=== PATIENT | male | born 1970 | race Caucasian/White ===

== ENCOUNTER 2022-07-09 09:16 | Emergency (ER) | payer OTHER, BC, SELFPAY ==
[2022-07-09 09:55] VITALS: BP 168/112; PULSE 76; RESP 16; TEMP 36.4; O2SAT 98; BMI 29.6
--- NOTE | 2022-07-09 12:26 | CRLHL7_ITS ---
For Patients: As a result of the Century Cures Act, medical imaging exams and procedure reports are released immediately into your electronic medical record. You may view this report before your referring provider. If you have questions, please contact your health care provider. Indication: Knee pain posteriorly Comparison: None available. Technique: Standing AP, lateral, and sunrise views of the left knee were obtained Findings: There is no displaced fracture or dislocation. Postoperative change status post ACL repair with bone anchors in the femur and tibia are appreciated. Additional fixation device in the distal femur is appreciated. No obvious hardware failure. The soft tissues are unremarkable. Impression: Degenerative and postoperative changes of the knee without acute osseous abnormality. Dictated by Harrison Ford MD @ 07/09/2022 2:07:39 PM (Electronically Signed)
--- NOTE | 2022-07-09 12:27 | ED.GENADULT ---
HPI - General Adult General Time Seen by Provider: 12:27 Date Seen: 07/09/22 Chief complaint: Extremity Pain/Injury, Lower Stated complaint: Fall, left knee injury Time Seen by Provider: 07/09/22 12:22 Source: patient Mode of arrival: wheelchair Limitations: physical limitation History of Present Illness HPI narrative: Patient presents with left knee injury after twisting it on a step this morning. She has had ACL repair on the left knee in the past, he heard a popping sensation, it has been swollen since. Unable to bear weight, and a good amount of discomfort. He does not notice any swelling about his ankle or proximal thigh, no hip pain he did not actually sustain any injury from the event other than the knee. Related Data Previous Rx's Medication Instructions Recorded hydrocodone 7.5 mg-acetaminophen 1 tab PO Q8H PRN pain #14 tabs 07/09/22 325 mg tablet ketorolac 10 mg tablet 10 mg PO TID PRN pain 5 days #10 07/09/22 tabs Allergies Allergy/AdvReac Type Severity Reaction Status Date / Time No Known Drug Allergies Allergy Verified 07/09/22 10:01 Review of Systems Status of ROS: Reports: 6 or more systems reviewed and unremarkable except as noted in History and below PFSH PFS Social History Non-prescribed substance use: denies use Exam Narrative: Exam Narrative: Objective: Vital signs show elevated blood pressure, patient is in moderate distress and discomfort in the knee, he finds it hard to find a comfortable position. Lytes keep the knee slightly flexed Left knee examination shows mild effusion, mild anterior drawer test that is about 1+, his right knee is 0. His left knee as the operative knee however. Distal CMS normal left lower extremity No marked medial lateral joint 9 tenderness Const: Vital Signs, click to edit/add: Vital Signs - 24 hr 07/09/22 09:55 Temperature 97.5 F L Pulse Rate [Right Pulse Oximeter] 76 Respiratory Rate 16 Blood Pressure [Ri ght Upper Arm] 168/112 H Pulse Oximetry 98 Oxygen Delivery Me thod Room Air Course Vital Signs Vital signs: Initial Vital Signs Temperature 97.5 F L 07/09/22 09:55 Temperature Source Temporal Artery Scan 07/09/22 09:55 Pulse Rate 76 07/09/22 09:55 Pulse Rhythm 07/09/22 09:55 Respiratory Rate 16 07/09/22 09:55 Blood Pressure 168/112 H 07/09/22 09:55 Blood Pressure Mean 130 07/09/22 09:55 Blood Pressure Position Sitting 07/09/22 09:55 Pulse Oximetry 98 07/09/22 09:55 Oxygen Delivery Method 07/09/22 09:55 Vital Signs Temperature 97.5 F L 07/09/22 09:55 Pulse Rate 76 07/09/22 09:55 Respiratory Rate 16 07/09/22 09:55 Blood Pressure 168/112 H 07/09/22 09:55 Pulse Oximetry 98 07/09/22 09:55 Oxygen Delivery Method 07/09/22 09:55 Temperature 97.5 F L 07/09/22 09:55 Pulse Rate 76 07/09/22 09:55 Respiratory Rate 16 07/09/22 09:55 Blood Pressure 168/112 H 07/09/22 09:55 Pulse Oximetry 98 07/09/22 09:55 Oxygen Delivery Method 07/09/22 09:55 Medical Decision Making MDM Narrative Medical decision making narrative: Patient sustained an injury to his left knee, his ACL repair knee. Will get an x-ray of his knee, will give him morphine 10 mg IM, will need a knee immobilizer, ice, crutches, nonweightbearing. Will need orthopedic follow-up in the next 2-3 days. Will give him some Blanchard for home, have him use Advil as well. Generally reports he is healthy. Disposition pending x-ray above Addendum: By my read the x-ray looks unremarkable, knee immobilizer, crutches, Toradol 10 mg orally, will discharge him with Blanchard and Toradol for home, ortho follow-up in 2-3 days, nonweightbearing, off work until next Saturday or until ortho follow-up. Discharge Plan Discharge Clinical Impression: Acute pain of left knee Patient Disposition: Home w/ Parent or Adult Condition: Stable Additional Instructions: Knee immobilizer, icing regularly 10 minutes 5 times a day for the next 3 days, Blanchard as needed for pain control and Advil, elevation, nonweightbearing, use crutches, orthopedic followup in the next 2-3 days Follow up appointment is scheduled at the [facility] on 07/11 with an 11am arrival time. If you have any questions or need to reschedule, please call [phone]. [facility] [place] [address] Activity Level: Light activity Activity Detail: Off work till next Saturday or until recheck with orthopedics sooner Discharge Diet: Regular Prescriptions: New hydrocodone-acetaminophen 7.5-325 mg tablet 1 tab PO Q8H PRN (Reason: pain) Qty: 14 0RF ketorolac 10 mg tablet 10 mg PO TID PRN (Reason: pain) 5 Days Qty: 10 0RF Follow Up/Referrals: Provider,Not a Local [Primary Care Provider] - Stand Alone Forms: [employer] Info Instructions
[2022-07-09] MEDS: MORPHINE 10 MG/ML inj IM (12:33)
--- NOTE | 2022-07-09 12:37 | ED.NURSE ---
Ice applied to left knee
== END 2022-07-09 13:30 | disposition home or self-care (01) ==
LOC: ED 12:51
PROVIDERS: Emergency Provider Family Medicine
DX: M25.562 Pain in left knee (principal); X50.1XXA Overexertion from prolonged static or awkward postures, initial encounter
CPT/HCPCS: 73562; 96372; 99283; J2270

== ENCOUNTER 2022-07-18 14:15 | Outpatient (CLI) | payer OTHER, SELFPAY ==
--- NOTE | 2022-07-18 14:30 | MR_ITS ---
[address] [address] Phone:?[phone] Fax:?[phone] Referring Physician Information: Jayleen Gaspar [address] [facility] [address] Phone:?[phone] Fax:?[phone] Patient:Jordyn Castano D.O.B:?1970 Sex:?Male Phone:?[phone] [facility] MRN:?[id number] Exam Date:?07/18/2022 ? EXAM: MRI of the LEFT KNEE, without contrast CLINICAL HISTORY: Left knee pain. Left knee injury. History of previous left knee surgery. Evaluate anterior cruciate ligament tear. COMPARISONS: Plain radiographs 07/09/2022 and 01/13/2015. TECHNICAL: MR sequences of the left knee: sagittals: PD, PDFS coronals: PD, STIR axials: PD, T2 FS CONTRAST: None SEDATION: None FINDINGS: Bones: No fracture, bone marrow contusion, or other suspicious bone marrow signal abnormality. Patellofemoral joint: Cartilage: Intact. Retinacula: The medial and lateral retinacula are intact. Fat pads: The infrapatellar, quadriceps, and prefemoral fat pads are unremarkable. Knee joint: Effusion: Physiologic amount of joint fluid. Popliteal cyst: None. Intra-articular bodies: None. Posteromedial corner: The semimembranosus and pes anserine tendons are intact. Medial compartment: Medial meniscus: Intact. Cartilage: 5 x 5 mm area of grade I chondromalacia over the posterior and lateral weightbearing portion of the medial femoral condyle best seen on coronal series 8 and 9 image 20 and sagittal series 6 and 7 image 12. Lateral compartment: Lateral meniscus: Intact. Cartilage: Intact. Ligaments: Anterior cruciate ligament: Surgical changes status post anterior cruciate ligament reconstruction with an intact anterior cruciate ligament graft. Only minimal ill-defined fibroproliferative scarring anterior to the anterior cruciate ligament graft, of uncertain/doubtful clinical significance. Posterior cruciate ligament: Intact. Medial collateral ligament: Intact. Posterior oblique ligament: Intact. Fibular collateral ligament: Intact. Posterolateral corner: The distal biceps femoris tendon, iliotibial band, popliteus tendon, popliteus muscle, popliteofibular ligament, and arcuate ligament are intact. Extensor mechanism: Patellar tendon: Intact. Quadriceps tendon: Intact. IMPRESSION: 1. Surgical changes status post anterior cruciate ligament reconstruction with an intact anterior cruciate ligament graft. Only minimal ill-defined fibroproliferative scarring anterior to the anterior cruciate ligament graft, of uncertain/doubtful clinical significance. 2. 5 x 5 mm area of grade I chondromalacia over the posterior and lateral weightbearing portion of the medial femoral condyle. 3. Otherwise, unremarkable MRI of the left knee without osseous, tendinous, or meniscal pathology. RCB Electronically signed on 07/25/2022 7:57:00 AM by Aneudy Alvarez M.D.
== END 2022-07-18 14:16 | disposition home or self-care (01) ==
LOC: MRI 14:16
PROVIDERS: PCP Family Medicine; Visit Provider Physician Assistant Surgical
DX: M25.562 Pain in left knee (principal); M94.262 Chondromalacia, left knee
CPT/HCPCS: 73721

== ENCOUNTER 2023-01-23 07:10 | Emergency (ER) | payer OTHER, SELFPAY ==
[2023-01-23 07:14] VITALS: BP 145/92; PULSE 61; RESP 18; TEMP 36.2; O2SAT 94; BMI 29.6
--- NOTE | 2023-01-23 07:45 | CRLHL7_ITS ---
For Patients: As a result of the Cures Act, medical imaging exams and procedure reports are released immediately into your electronic medical record. You may view this report before your referring provider. If you have questions, please contact your health care provider. INDICATION: BACK PAIN, FALL TECHNIQUE: 2-view lumbar spine. COMPARISON: none FINDINGS: The lumbar vertebrae are anatomically aligned. Mild multilevel discogenic spurring. The facet joints appear intact. There is no evidence of a fracture or intrinsic bone lesion. The SI joints appear normal. Vascular calcifications. IMPRESSION: No fracture. Dictated by Karri Moon MD @ 01/23/2023 8:21:24 AM (Electronically Signed)
[2023-01-23] MEDS: KETOROLAC 30 MG/ML inj IM (08:05)
[2023-01-23] MEDS: MORPHINE 10 MG/ML inj IM (08:06)
--- NOTE | 2023-01-23 08:10 | ED.BACK ---
HPI - Back Pain/Injury General Date Seen: 01/23/23 Chief Complaint: Back Injury/Pain Stated Complaint: major back pain Time Seen by Provider: 01/23/23 07:46 Source: patient and family Mode of arrival: ambulatory Limitations: no limitations History of Present Illness HPI Narrative: Patient is a 52-year-old gentleman, who 3 days ago fell out of the back of a half done, landing on his back after approximately falling 3 ft from standing. He was trying to move mattress out. He said he actually got up and felt pretty okay did not injure his head, or neck, but he was out swimming yesterday at an event, and noted that his back tweaked. And then he had increased pain he does have some right lower extremity numbness that goes to the top of the right foot. He did not have this before, he does not report any weakness, any loss of bowel or bladder symptoms any fevers chills or sweats or history of malignancy. He has no real history of previous back issues at all took some meloxicam which she has used in the past for knee pain, but has not really noticed an improvement with this. Pain is localized his lumbar spine, with some radiation into the right buttock, and down the leg. Denies any numbness MD rolando elicited complaint: back pain and fall Onset (ago): day(s) Timing: progressively worsening Severity: moderate Similar Symptoms Previously: No Quality: stabbing and tingling Location: lumbar spine Radiation: buttocks and right leg below the knee Exacerbating factors: movement and sitting upright Relieving factors: immobilization Context: fall Associated symptoms: denies other symptoms Treatments prior to arrival: NSAIDS Work related injury: No Related Data Previous Rx's Medication Instructions Recorded hydrocodone 7.5 mg-acetaminophen 1 tab PO Q8H PRN pain #14 tabs 07/09/22 325 mg tablet ketorolac 10 mg tablet 10 mg PO TID PRN pain 5 days #10 07/09/22 tabs Allergies Allergy/AdvReac Type Severity Reaction Status Date / Time No Known Drug Allergies Allergy Verified 07/11/22 11:33 Review of Systems Status of ROS: Reports: 10 or more systems reviewed and unremarkable except as noted in History and below PFSH PFS Surgical History History of repair of anterior cruciate ligament of left knee (~1994) ?Z98.890 - Other specified postprocedural states (ICD-10) History of arthroscopy of right knee ?Z98.890 - Other specified postprocedural states (ICD-10) Social History Smoking Status: Current every day smoker What tobacco products do you use: cigarettes Smoking packs per day: 1 Smoking cigarettes per day: 20.0 Years smoked: 38 Smoking pack-years: 38.00 Do you use any of these nicotine containing products: None Second hand tobacco smoke exposure: No How often do you have a drink containing alcohol: 2-3 times a week How many standard drinks containing alcohol do you have on a typical day: 3 or 4 AUDIT-C Alcohol total score: 4 Non-prescribed substance use: denies use service: Yes Exam Narrative: Exam Narrative: Patient is seen in room 3, he is in some moderate distress laying on his left side, very slowly he is able to stand for me, he is a humped flexed forward posture, tenderness is noted across the lower lumbar spine with absence of any bruising or any reactive or any suggestion of scoliosis. He has grossly normal perianal sensation, he is able to both heel and toe walk for me in the room, with some coaxing, forward flexion is only 30? backward extension is +5?, lateral flexion is +10?, any really does not have any thoracic rotation, SLR sitting to 90? does exacerbate his pain into his right buttock his left side is normal, EHL , great toe flexors, ankle dorsiflexors and plantar flexors, knee flexors 10 sirs, and hip flexors are graded 5/5 power bilaterally, 0/4 patellar and Achilles reflexes no sensation is grossly normal overall the dermatomal areas in his lower legs bilaterally, pulses are normal, scar from previous left-sided knee surgeries noted. Well-healed Const: Vital Signs, click to edit/add: Vital Signs - 24 hr 01/23/23 07:14 Temperature 97.1 F L Pulse Rate [Pulse Oximeter] 61 Respiratory Rate 18 Blood Pressure [Ri ght Upper Arm] 145/92 H Pulse Oximetry 94 Oxygen Delivery Me thod Room Air Documenting provider has reviewed patient's vital signs: yes Course Course Hospital Course: I reviewed with the patient and his partner, I do not see any evidence of a compression fracture on the x-rays. Or any significant issue, is disc spaces are well maintained, he still could have a disc protrusion causing the issue, for that reason I do think some prednisone along with some narcotic medication may help him, I did review the [facility] any only has 1 prescription from 2021. Follow-up with primary care is suggested. Vital Signs Vital signs: Initial Vital Signs Temperature 97.1 F L 01/23/23 07:14 Temperature Source Temporal Artery Scan 01/23/23 07:14 Pulse Rate 61 01/23/23 07:14 Pulse Rhythm Regular 01/23/23 07:14 Respiratory Rate 18 01/23/23 07:14 Blood Pressure 145/92 H 01/23/23 07:14 Blood Pressure Mean 109 H 01/23/23 07:14 Blood Pressure Position Left Lateral 01/23/23 07:14 Pulse Oximetry 94 01/23/23 07:14 Oxygen Delivery Method Room Air 01/23/23 07:14 Vital Signs Temperature 97.1 F L 01/23/23 07:14 Pulse Rate 61 01/23/23 07:14 Respiratory Rate 18 01/23/23 07:14 Blood Pressure 145/92 H 01/23/23 07:14 Pulse Oximetry 94 01/23/23 07:14 Oxygen Delivery Method Room Air 01/23/23 07:14 Temperature 97.1 F L 01/23/23 07:14 Pulse Rate 61 01/23/23 07:14 Respiratory Rate 18 01/23/23 07:14 Blood Pressure 145/92 H 01/23/23 07:14 Pulse Oximetry 94 01/23/23 07:14 Oxygen Delivery Method Room Air 01/23/23 07:14 MDM - Back Pain/Injury MDM Narrative Medical decision making narrative: Life-threatening differential diagnosis considered include: Cauda equina an epidural abscess, other differential diagnosis considered includes sprain, contusion, nerve root entrapment, radiculopathy, muscle spasm, urolithiasis, lumbar fracture, pyelonephritis, appendicitis, biliary colic, as well as other etiologies. The patient denies saddle anesthesia bowel or bladder incontinence or lower extremity weakness, recent weight loss, or history of malignancy. Medical Records Attestation: I reviewed the patient's medical records. Imaging Data Lumbar spine: Attestation: I have reviewed the pertinent imaging results. My impression: X-ray shows normal disc spaces no significant scoliosis nonspecific gas pattern, no significant spondylolisthesis. Await radiological over-read Discharge Plan Discharge Clinical Impression: Lumbar radiculopathy Patient Disposition: Home w/ Parent or Adult Condition: Stable Instructions: Lumbar Radiculopathy (ED), Back Pain (ED) Additional Instructions: Home rest use of ice, better than he had at this point, as will help with inflammation, you may take her meloxicam, I will give you some prednisone that you can take also, small supply of hydrocodone. Follow-up with primary care if ongoing signs and symptoms, x-rays reassuring at this point, worsening conditions such as bowel or bladder issues, he need to come back to the ER. This usually runs a course of improvement over the next 5-7 days, you may also use some Tylenol also. Prescriptions: No Action hydrocodone-acetaminophen 7.5-325 mg tablet 1 tab PO Q8H PRN (Reason: pain) Qty: 14 0RF ketorolac 10 mg tablet 10 mg PO TID PRN (Reason: pain) 5 Days Qty: 10 0RF Follow Up/Referrals: Manolo Hsu MD [Primary Care Provider] - Stand Alone Forms: [employer] Info Instructions
== END 2023-01-23 08:45 | disposition home or self-care (01) ==
PROVIDERS: Emergency Provider Family Medicine; PCP Family Medicine
DX: M54.16 Radiculopathy, lumbar region (principal)
CPT/HCPCS: 72100; 96372; 99283; 99284; J1885; J2270

== ENCOUNTER 2023-06-10 10:01 | Outpatient (CLI) | payer OTHER, SELFPAY ==
--- NOTE | 2023-06-10 11:54 | W.ANESCHARGE ---
Anesthesia Charges Start Date/Time Anesthesia Start Date: 06/10/23 Anesthesia Start Time: 11:23 Stop Date/Time Anesthesia Stop Date: 06/10/23 Anesthesia Stop Time: 11:49
--- NOTE | 2023-06-10 11:56 | W.ANESCHARGE ---
Anesthesia Charges Start Date/Time Anesthesia Start Date: 06/10/23 Anesthesia Start Time: 11:23 Stop Date/Time Anesthesia Stop Date: 06/10/23 Anesthesia Stop Time: 11:49
== END 2023-06-10 10:02 | disposition home or self-care (01) ==
LOC: OP CLINIC 10:02
PROVIDERS: PCP Family Medicine; Visit Provider Internal Medicine Gastroenterology
DX: Z12.11 Encounter for screening for malignant neoplasm of colon (principal); K63.5 Polyp of colon
CPT/HCPCS: 00811; 00812; 45380; 45385; 88305; J2704